=== PATIENT | female | born 1955 | race Caucasian/White ===

== ENCOUNTER 2016-02-07 15:46 | Inpatient (IN) | payer MEDICARE ==
[~2016-02-07] VITALS: Ht 175.3 cm; Wt 118.5 kg
[~2016-02-07 15:46] MED LIST: AMOXICILLIN/CLA1 TA1 PO; ASPIRIN 32325 MG/TAB PO; BENADRYL25 M2 PO; DAZIDOX20 MG PO; DILAUDID 2MG TAB2 MG PO; DULCOLAX S10 MG/SUPP RC; GLUCOPHAGE1000 MG PO; HUMULIN 70/3100 U/M1; IPRATROPIUM BROM3 M1 IH; LEVEMIR FLEX100 U/ML SQ; MILK OF MA400 MG/52 PO; MIRALAX PA17 GM/Dose PO; MS CONTIN100 MG PO; MULTI VITAMINS1 TAB PO; MYCOSTATIN100000 U/1 TP; NORCO 325 MG-101 TAB; NOVOLOG FLEX100 U/ML SQ; PRINZIDE 12.5 M1 TA1; PROTONIX 40MG T40 MG PO; SENOKOT S 50 MG1 TAB PO; SEPTRA DS 8001 TAB PO; VENTOLIN0.09 MG IH
[2016-02-07 17:55] VITALS: BP 157/72; PULSE 105; TEMP 98.1
[2016-02-08 05:13] VITALS: BP 136/64; PULSE 77; TEMP 97.2
[2016-02-08 16:03] VITALS: BP 117/56; PULSE 85; TEMP 98.2
[2016-02-08] MEDS ORDERED: ASPIRIN 32325 MG/TAB PO (18:18)
[2016-02-09 06:03] VITALS: BP 146/75; PULSE 97; TEMP 98.1
[2016-02-09 16:12] VITALS: BP 126/55; PULSE 94; TEMP 98.7
[2016-02-10 04:03] VITALS: BP 159/66; PULSE 84; TEMP 98.3
[2016-02-10 17:39] VITALS: BP 141/62; PULSE 93; TEMP 98.1
[2016-02-11 04:27] VITALS: BP 149/70; PULSE 90; TEMP 98.3
[2016-02-11 16:41] VITALS: BP 136/54; PULSE 84; TEMP 97.6
[2016-02-12 04:16] VITALS: BP 127/60; PULSE 90; TEMP 98.2
[2016-02-12 16:15] VITALS: BP 116/71; PULSE 85; TEMP 97.6
[2016-02-13 03:58] VITALS: BP 131/65; PULSE 88; TEMP 98.8
[2016-02-13 16:12] VITALS: BP 157/62; PULSE 90; TEMP 97.4
[2016-02-14 06:33] VITALS: BP 148/60; PULSE 79; TEMP 98.2
[2016-02-14 07:20] LABS: CALCIUM 9.5 mg/dL (8.4-10.2); CREATININE, serum 0.87 mg/dL (0.52-1.25); POTASSIUM 5.3 mmol/L (3.4-5.0)
[2016-02-14 07:28] LABS: BASO % 0.7 % (0.0-2.0); EOS # 0.2 (0.0-0.7); GRAN # 2.9 (1.4-6.5); GRAN % 53.6 % (42.2-75.2); HEMATOCRIT 37.1 % (37.0-47.0); LYMPH # 1.9 (1.2-3.4); LYMPH % 34.1 % (20.0-51.0); MEAN CELL VOLUME 84 fl (80.0-100.0); MEAN CORPUSCULAR HEMOGLOBIN 27 pg (27.0-31.0); MEAN CORPUSCULAR HGB CONC 32 g/dl (33.0-37.0); MONO # 0.4 (0.1-0.6); MONO % 7.1 % (1.7-9.3); PLATELET COUNT 295 K/mm3 (130-400); RED BLOOD COUNT 4.41 M/mm3 (4.10-5.30); REDCELL DISTRIBUTION WIDTH-CV 17.5 % (11.5-14.5); WHITE BLOOD COUNT 5.5 K/mm3 (4.8-10.8)
[2016-02-14 07:31] LABS: HEMOGLOBIN 11.8 g/dl (12.5-16.0)
[2016-02-14 16:01] VITALS: BP 122/54; PULSE 80; TEMP 96.9
[2016-02-15 05:27] VITALS: BP 147/63; PULSE 85; TEMP 98.1
[2016-02-15] MEDS ORDERED: ASPI325T6 PO (10:17)
[2016-02-15] MEDS ORDERED: TYLENOL 325MG325 MG PO (10:18)
[2016-02-15] MEDS ORDERED: RT ADVAIR HFA 1112 G IH (10:18)
[2016-02-15] MEDS ORDERED: DILAUDID 2MG TAB2 MG PO (10:20)
== END 2016-02-15 16:30 | disposition home health service (06) | DRG 947 ==
PROVIDERS: Internal Medicine
DX: R53.81 Other malaise (principal); J96.01 Acute respiratory failure with hypoxia; M86.8X6 Other osteomyelitis, lower leg; Z89.512 Acquired absence of left leg below knee; E11.610 Type 2 diabetes mellitus with diabetic neuropathic arthropathy; Z79.4 Long term (current) use of insulin; F17.210 Nicotine dependence, cigarettes, uncomplicated; I10 Essential (primary) hypertension
CPT/HCPCS: 99223-AI; 99232-AI; 99239; A6207; A6209; A6212; J1815

== ENCOUNTER → 2016-02-22 | Outpatient (CLI) | payer MEDICARE ==
[~2016-02-22] MED LIST changes: +ASPI325T6 PO; +RT ADVAIR HFA 1112 G IH; +TYLENOL 325MG325 MG PO
== END ==
LOC: WCC 10:24
DX: E11.621 Type 2 diabetes mellitus with foot ulcer (principal); L97.419 Non-pressure chronic ulcer of right heel and midfoot with unspecified severity; L89.519 Pressure ulcer of right ankle, unspecified stage; Z89.522 Acquired absence of left knee
CPT/HCPCS: 13919; 17717; 27510; 27515; A6197; A6212; G0463

== ENCOUNTER → 2016-02-29 | Outpatient (CLI) | payer MEDICARE | LOC: WCC 09:45 | DX: L89.813 Pressure ulcer of head, stage 3 (principal); E11.610 Type 2 diabetes mellitus with diabetic neuropathic arthropathy; Z89.522 Acquired absence of left knee | CPT/HCPCS: 13919; 17717; 27515; A6212; G0463 ==

== ENCOUNTER → 2016-03-07 | Outpatient (CLI) | payer MEDICARE | LOC: WCC 08:49 | DX: E11.621 Type 2 diabetes mellitus with foot ulcer (principal); E11.610 Type 2 diabetes mellitus with diabetic neuropathic arthropathy; L89.513 Pressure ulcer of right ankle, stage 3; Z89.522 Acquired absence of left knee | CPT/HCPCS: 13919; 27517; A6207; G0463 ==

== ENCOUNTER → 2016-03-16 | Outpatient (CLI) | payer MEDICARE | LOC: WCC 09:54 | DX: E11.621 Type 2 diabetes mellitus with foot ulcer (principal); L97.519 Non-pressure chronic ulcer of other part of right foot with unspecified severity; E11.610 Type 2 diabetes mellitus with diabetic neuropathic arthropathy; Z89.522 Acquired absence of left knee | CPT/HCPCS: 13919; 27515; G0463 ==

== ENCOUNTER → 2016-03-21 | Outpatient (CLI) | payer MEDICARE | LOC: WCC 08:39 | DX: E11.621 Type 2 diabetes mellitus with foot ulcer (principal); L97.519 Non-pressure chronic ulcer of other part of right foot with unspecified severity; E11.610 Type 2 diabetes mellitus with diabetic neuropathic arthropathy; Z89.522 Acquired absence of left knee | CPT/HCPCS: 13919; 27515; G0463 ==

== ENCOUNTER → 2016-03-28 | Outpatient (CLI) | payer MEDICARE | LOC: WCC 10:19 | DX: E11.621 Type 2 diabetes mellitus with foot ulcer (principal); L97.519 Non-pressure chronic ulcer of other part of right foot with unspecified severity; E11.610 Type 2 diabetes mellitus with diabetic neuropathic arthropathy | CPT/HCPCS: 13919; 27515; G0463 ==

== ENCOUNTER → 2016-04-11 | Outpatient (CLI) | payer MEDICARE | LOC: WCC 04-04 11:50 | DX: E11.621 Type 2 diabetes mellitus with foot ulcer (principal); L97.519 Non-pressure chronic ulcer of other part of right foot with unspecified severity | CPT/HCPCS: 13919; 17716; 21064; A6021; A6212 ==

== ENCOUNTER → 2016-04-18 | Outpatient (CLI) | payer MEDICARE | LOC: WCC 09:47 | DX: E11.621 Type 2 diabetes mellitus with foot ulcer (principal); L97.519 Non-pressure chronic ulcer of other part of right foot with unspecified severity; E11.610 Type 2 diabetes mellitus with diabetic neuropathic arthropathy; Z89.522 Acquired absence of left knee | CPT/HCPCS: 13919; G0463 ==

== ENCOUNTER → 2016-04-25 | Outpatient (CLI) | payer MEDICARE | LOC: WCC 10:03 | DX: E11.621 Type 2 diabetes mellitus with foot ulcer (principal); E11.610 Type 2 diabetes mellitus with diabetic neuropathic arthropathy; L97.519 Non-pressure chronic ulcer of other part of right foot with unspecified severity; Z89.512 Acquired absence of left leg below knee | CPT/HCPCS: G0463 ==